=== PATIENT | female | born 1945 | race Hispanic/Latino ===

== ENCOUNTER 2020-06-29 16:17 | Observation (INO) | payer SELFPAY ==
[2020-06-29] MEDS ORDERED: SODIUM CHLORIDE 0.9% (FLUSH) 10 ML SYG IV PRN (16:32)
--- NOTE | 2020-06-29 16:56 | CT ---
EXAM DESCRIPTION: CT-Head CLINICAL HISTORY: weakness COMPARISON: None available TECHNIQUE: Multiple axial images of the head without contrast. Multiplanar reformatted images. This exam was performed according to our departmental dose-optimization program, which includes automated exposure control, adjustment of the mA and/or kV according to patient size and/or use of iterative reconstruction technique. FINDINGS: Moderately degraded image quality secondary to motion artifact. This limits evaluation. No definite CT evidence of hemorrhage, mass effect, or large territory infarction. Mild generalized volume loss. Mild patchy supratentorial white matter hypodensities. There are no abnormal extra-axial fluid collections. Calcific plaque in the visualized arteries. There is no acute calvarial defect. Heterogeneous opacification in the left maxillary sinus containing hyperdense debris. Moderate mucosal thickening throughout the ethmoid air cells and left sphenoid sinus. The mastoid air cells are clear. IMPRESSION: 1. Motion limited exam, but no definitive CT evidence of an acute intracranial abnormality. If there is concern for an acute or subacute infarct, consider follow-up MRI. 2. Senescent changes. 3. Likely acute on chronic inflammatory changes in the left maxillary sinus. Findings called to Dr. Tae Villegas on 06/29/2020 at 1651 hours. Electronically signed by: Rene Stephenson MD 06/29/2020 4:54 PM CDT
--- NOTE | 2020-06-29 17:07 | RAD ---
EXAM DESCRIPTION: Chest,1 View CLINICAL HISTORY: 74 years Female, right sided weakness x 24+ hours COMPARISON: None. TECHNIQUE: AP portable chest. FINDINGS: Fair expansion of the lungs is evident without consolidation, layering effusion, or large mass. Modest cardiomegaly with normal vascularity without overt failure or pleural effusions. No gross bony, hilar, or mediastinal abnormalities are noted. IMPRESSION: Cardiomegaly without congestive failure. Electronically signed by: Roly Hutchison MD 06/29/2020 5:06 PM CDT
--- NOTE | 2020-06-29 17:41 | ED.PDOC ---
History of Present Illness - General Chief Complaint: Neuro Symptoms/Deficits Stated Complaint: weakness, eye pain Time Seen by Provider: 06/29/20 16:32 Source: patient, RN notes reviewed, Vital Signs reviewed, EMS notes reviewed, family - son Exam Limitations: no limitations - History of Present Illness Initial Comments: . Patient is a 74-year-old female who presents with her son with complaints of generalized weakness as well as not feeling well with generalized malaise and fatigue. Additionally, she has had right-sided weakness and facial droop for the last 24+ hours. Patient recently just came back from [place]. Patient complains of some eye pain, right. Patient denies any visual field changes. She denies any numbness or tingling. Timing/Duration: 24 hours Severity: moderate Improving Factors: nothing Worsening Factors: nothing Associated Symptoms: weakness Allergies/Adverse Reactions: Allergies NO KNOWN ALLERGY Allergy (Verified 06/29/20 16:32) Review of Systems - Review of Systems Constitutional: States: see HPI, malaise, weakness. Denies: chills, fever EENTM: States: see HPI, eye pain. Denies: blurred vision, double vision Respiratory: States: no symptoms reported. Denies: cough, short of breath, wheezing Cardiology: States: no symptoms reported. Denies: chest pain, palpitations, syncope Gastrointestinal/Abdominal: States: no symptoms reported. Denies: abdominal pain, diarrhea, nausea, vomiting Genitourinary: States: no symptoms reported. Denies: dysuria Musculoskeletal: Denies: no symptoms reported, back pain, joint pain, neck pain Skin: States: no symptoms reported. Denies: change in color, rash Neurological: States: see HPI, weakness. Denies: headache, numbness Endocrine: States: no symptoms reported. Denies: increased hunger, increased thirst, increased urine Hematologic/Lymphatic: States: no symptoms reported All other Systems: No Change from Baseline Past Medical History (General) - Patient Medical History Hx Congestive Heart Failure: No Hx Hypertension: Yes Hx Diabetes: No Surgical History: no surgical history - Vaccination History Immunizations Up to Date: Yes - Activities of Daily Living Hospice Agency (if applicable):: None - Female History Patient is a Female of Child Bearing Age (10 -59 yrs old): No Family Medical History - Family History Mother Family History: Unknown Physical Exam - Physical Exam General Appearance: Alert, Anxious, Obese, Well Developed, Well Groomed, Well Hydrated, Well Nourished Eye Exam: bilateral normal Ears, Nose, Throat: hearing grossly normal, normal pharynx - except for mild tongue deviation to the right when pt sticks her tongue out. Neck: non-tender, full range of motion, supple Respiratory: chest non-tender, lungs clear, normal breath sounds, no respiratory distress Cardiovascular/Chest: normal peripheral pulses, regular rate, rhythm, no edema, no gallop, no JVD, no murmur Peripheral Pulses: radial,right: 2+, radial,left: 2+ Gastrointestinal/Abdominal: normal bowel sounds, non tender, soft, no organome olegario, no pulsatile mass Back Exam: normal inspection, no CVA tenderness, no vertebral tenderness Extremity: normal range of motion, non-tender, normal inspection, no pedal edema Neurologic: machine ii engraver II-XII nml as tested, no motor/sensory deficits, alert, normal mood/affect, oriented x 3, motor weakness - generalized weakness Skin Exam: normal color, warm/dry Lymphatic: no adenopathy Progress - Progress Progress: Differential diagnosis: CVA, TIA, hypoglycemia, electrolyte abnormality among others 06/29/20 18:[address] does not show any signs of stroke. EKG is normal but she does have a mildly elevated troponin that is flat. Plan on admission to the hospital for trending of troponins and to obtain an MRI and ultrasound for completion of her stroke work-up. I discussed this plan of care with the patient and her son and they voiced understanding and agreement with the plan of care. I discussed this patient with Marques Shafer, SHANNON, and he accepts the patient for admission. Tae Villegas M.D. #[id number] - Results/Orders Results/Orders: EXAM DESCRIPTION: Chest,1 View CLINICAL HISTORY: 74 years Female, right sided weakness x 24+ hours COMPARISON: None. TECHNIQUE: AP portable chest. FINDINGS: Fair expansion of the lungs is evident without consolidation, layering effusion, or large mass. Modest cardiomegaly with normal vascularity without overt failure or pleural effusions. No gross bony, hilar, or mediastinal abnormalities are noted. IMPRESSION: Cardiomegaly without congestive failure. Electronically signed by: Roly Hutchison MD 06/29/2020 5:06 PM EXAM DESCRIPTION: CT-Head CLINICAL HISTORY: weakness COMPARISON: None available TECHNIQUE: Multiple axial images of the head without contrast. Multiplanar reformatted images. This exam was performed according to our departmental dose-optimization program, which includes automated exposure control, adjustment of the mA and/or kV according to patient size and/or use of iterative reconstruction technique. FINDINGS: Moderately degraded image quality secondary to motion artifact. This limits evaluation. No definite CT evidence of hemorrhage, mass effect, or large territory infarction. Mild generalized volume loss. Mild patchy supratentorial white matter hypodensities. There are no abnormal extra-axial fluid collections. Calcific plaque in the visualized arteries. There is no acute calvarial defect. Heterogeneous opacification in the left maxillary sinus containing hyperdense debris. Moderate mucosal thickening throughout the ethmoid air cells and left sphenoid sinus. The mastoid air cells are clear. IMPRESSION: 1. Motion limited exam, but no definitive CT evidence of an acute intracranial abnormality. If there is concern for an acute or subacute infarct, consider follow-up MRI. 2. Senescent changes. 3. Likely acute on chronic inflammatory changes in the left maxillary sinus. Findings called to Dr. Tae Villegas on 06/29/2020 at 1651 hours. Electronically signed by: Rene Stephenson MD 06/29/2020 4:54 PM CDT EKG performed 29 June 2020 at 1626 hrs.: Normal sinus rhythm at 64 bpm, normal axis deviation, no ST or T wave changes, normal EKG no signs of acute ischemia. No old EKG for comparison. 06/29/20 16:32 Telemetry .ONCE Sodium Chloride 0.9% (Flush) [Saline Flush Syringe] 10 ml IV PRN PRN 06/29/20 16:45 EKG STAT Laboratory Results - last 24 hr 06/29/20 06/29/20 06/29/20 16:30 16:30 16:30 WBC 7.5 RBC 3.21 L Hgb 13.5 Hct 37.8 MCV 117.7 H MCH 41.9 H MCHC 35.6 RDW 13.5 Plt Count 143 MPV 9.7 Absolute Neuts (auto) 3.90 Absolute Lymphs (auto) 2.50 Absolute Monos (auto) 0.80 Absolute Eos (auto) 0.20 Absolute Basos (auto) 0.10 Total Counted Cancelled Neutrophils % 51.8 Neutrophils % (Manual) Cancelled Lymphocytes % 33.7 Lymphocytes % (Manual) Cancelled Monocytes % 10.9 H Monocytes % (Manual) Cancelled Eosinophils % 2.5 Basophils % 1.1 Band Neutrophils Cancelled Eosinophils Cancelled Basophils Cancelled Metamyelocytes Cancelled Myelocytes Cancelled Promyelocytes Cancelled Nucleated RBCs Cancelled Hypersegmented Polys Cancelled Blast Cells Cancelled Plasma Cells Cancelled Other Cell Type Cancelled Hypochromia Cancelled Toxic Granulation Cancelled Dohle Bodies Cancelled Julissa Rods Cancelled Platelet Estimate Cancelled Normal RBC Morphology Stain quality accept Polychromasia Cancelled Poikilocytosis Cancelled Basophilic Stippling Cancelled Anisocytosis Cancelled Microcytosis Cancelled Macrocytosis Cancelled Spherocytes Cancelled Sickle Cells Cancelled Target Cells Cancelled Ovalocytes Cancelled Stomatocytes Cancelled Helmet Cells Cancelled [place] Bodies Cancelled [place] Rings Cancelled Tessie Cells Cancelled Acanthocytes (Spur) Cancelled Rouleaux Cancelled Schistocytes Cancelled RBC Morph Comment Cancelled PUBS Tear Drop Cells Cancelled PT 13.3 H INR 1.34 H PTT (SP) 24.7 Sodium 142 Potassium 4.1 Chloride 110 Carbon Dioxide 24 Anion Gap 12.1 BUN 13 Creatinine 0.73 BUN/Creatinine Ratio 17.8 POC Glucose Random Glucose 113 H Serum Osmolality 284.0 Calcium 9.3 Total Bilirubin 1.9 H AST 65 H ALT 38 Alkaline Phosphatase 111 Creatine Kinase 73 CK-MB (CK-2) 1.8 CK-MB (CK-2) % Not Reportable Troponin I 0.06 H Serum Total Protein 7.8 Albumin 3.1 L Globulin 4.7 H Albumin/Globulin Ratio 0.7 L 06/29/20 06/29/20 16:30 18:13 WBC RBC Hgb Hct MCV MCH MCHC RDW Plt Count MPV Absolute Neuts (auto) Absolute Lymphs (auto) Absolute Monos (auto) Absolute Eos (auto) Absolute Basos (auto) Total Counted Neutrophils % Neutrophils % (Manual) Lymphocytes % Lymphocytes % (Manual) Monocytes % Monocytes % (Manual) Eosinophils % Basophils % Band Neutrophils Eosinophils Basophils Metamyelocytes Myelocytes Promyelocytes Nucleated RBCs Hypersegmented Polys Blast Cells Plasma Cells Other Cell Type Hypochromia Toxic Granulation Dohle Bodies Julissa Rods Platelet Estimate Normal RBC Morphology Polychromasia Poikilocytosis Basophilic Stippling Anisocytosis Microcytosis Macrocytosis Spherocytes Sickle Cells Target Cells Ovalocytes Stomatocytes Helmet Cells [place] Bodies [place] Rings Tessie Cells Acanthocytes (Spur) Rouleaux Schistocytes RBC Morph Comment PUBS Tear Drop Cells PT INR PTT (SP) Sodium Potassium Chloride Carbon Dioxide Anion Gap BUN Creatinine BUN/Creatinine Ratio POC Glucose 106 H Random Glucose Serum Osmolality Calcium Total Bilirubin AST ALT Alkaline Phosphatase Creatine Kinase CK-MB (CK-2) CK-MB (CK-2) % Troponin I 0.06 H Serum Total Protein Albumin Globulin Albumin/Globulin Ratio Vital Signs 06/29/20 06/29/20 06/29/20 16:20 16:33 17:17 Temperature 97.5 F L 97.5 F L Pulse Rate [ 72 72 60 brachial] Respiratory 16 16 16 Rate Blood Pressure 210/84 174/71 [Left Arm] O2 Sat by Pulse 99 99 Oximetry Departure - Departure Clinical Impression: TIA (transient ischemic attack), Elevated troponin I level Time of Disposition: 18:52 Disposition: Admit Patient Condition: Fair Departure Forms: ED Discharge - Pt. Copy, Patient Portal Self Enrollment Diet: resume usual diet Activity: increase activity as tolerated Referrals: GARLAND VILLASEÑOR IV, STICK INSERTER [Primary Care Provider] - 1-2 Weeks Decision To Admit - Decistion To Admit Decision to Admit Date: 06/29/20 Decision to Admit Time: 18:40
[2020-06-29] MEDS ORDERED: MECLIZINE HCL 12.5 MG TAB PO ONE (18:58)
[2020-06-29] MEDS ORDERED: hydrALAZINE HCl 20 MG/ML VIAL IV ONE (18:58)
--- NOTE | 2020-06-29 23:44 | CT ---
EXAM: CTA Chest HISTORY: elevated DDimer, SOB, COVID positive COMPARISON: 06/21/2020 TECHNIQUE: Contiguous axial CTA images of the chest were obtained from the thoracic inlet to the upper abdomen after administration of intravenous contrast followed by multiplanar reformats. 3-D postprocessing was performed. This exam was performed according to our departmental dose-optimization program, which includes automated exposure control, adjustment of the mA and/or kV according to patient size and/or use of iterative reconstruction technique. FINDINGS: There is adequate opacification of the pulmonary arterial vasculature. There is no evidence of pulmonary embolus. Cardiomegaly. No pericardial. No right heart strain. No mediastinal adenopathy. Central airways are patent. Great vessels are normal. Clear lungs, accounting for respiratory motion artifact at the bases. No pneumothorax or pleural effusion. Limited visualization of upper abdominal contents is unremarkable for an acute process. No destructive osseous lesion. IMPRESSION: 1. No evidence of pulmonary embolus. 2. No active cardiopulmonary process. Please note that the lungs may initially appear clear in the early course of COVID infection. Electronically signed by: Shad Zarate MD 06/29/2020 11:43 PM CDT
[2020-06-30] MEDS ORDERED: SODIUM CHLORIDE 0.9% (FLUSH) 10 ML SYG IV PRN (00:29)
[2020-06-30] MEDS ORDERED: IV SET AND CAP CHANGE INJ INJ SCH (00:30)
[2020-06-30] MEDS ORDERED: AZITHROMYCIN IV 500 MG in SODIUM CHLORIDE 0.9% 250ML 250 ML IVPB SCH (01:00)
[2020-06-30] MEDS ORDERED: AZITHROMYCIN IV 500 MG VIAL IVPB ONE (01:17)
[2020-06-30] MEDS ORDERED: SODIUM CHLORIDE 0.9% 250ML 250 ML ONE (01:18)
[2020-06-30] MEDS: DEXAMETHASONE INJ 10 MG/ML VIAL IV SCH ×2 (01:19→08:50)
[2020-06-30] MEDS ORDERED: LABETALOL INJ 5 MG/ML VIAL IV ONE (01:39)
[2020-06-30 06:07] VITALS: BP 130/62; TEMP 97.8
[2020-06-30 10:17] VITALS: O2SAT 100
[2020-06-30] MEDS ORDERED: ASPIRIN (CHEWABLE) 81 MG TAB PO SCH (11:30)
[2020-06-30] MEDS ORDERED: ASPIRIN (CHEWABLE) 81 MG TAB ONE (11:59)
[2020-06-30] MEDS ORDERED: LOSARTAN POTASSIUM 25 MG TAB PO SCH (21:00)
--- NOTE | 2020-07-01 09:11 | SSS ---
SUPERVISING PHYSICIAN: Apurva Bruner MD DATE OF ADMISSION: 06/29/20 DATE OF DISCHARGE: 06/30/20 CHIEF COMPLAINT: Generalized weakness. HISTORY OF PRESENT ILLNESS: Ms. Child is a 74-year-old female that was seen in the clinic on Monday, by Daniel Chávez for generalized weakness. She has a past medical history of hypertension. Of note also, she just got back from [place]. She was found to be a little hypertensive in the clinic with generalized weakness and some reported right sided weakness with questionable facial droop for the last 24 hours. She was sent to the Emergency Room for evaluation. In the ER, it was discovered her symptoms had been going on for quite a while with regards to weakness. It is unclear if the generalized weakness was more prominent on the right. No neurologic deficits were noted on exam other than it was felt she may have slight deviation of tongue on exam. The patient was tested for COVID and found to be positive, but was not showing any respiratory signs. Workup in the ER initially showed her vital signs on presentation showed she was hypertensive 210/84, but was showing heart rate 72, saturation 99% on room air. She had no other complaints. She actually was given hydralazine to bring her blood pressure down. Further workup in the ER with laboratory studies showed she had a white count 7,500, hemoglobin 13.5, hematocrit 37.8. She did have macrocytosis on RBC indices. Platelet count normal at 143. Differential was without a left shift. Coagulation studies did reveal a slightly elevated PT of 13.3 with INR 1.34, PTT 24.7. D-dimer was elevated at 618. Chemistry showed normal electrolytes with creatinine 0.73, blood sugar 113, calcium 9.3, magnesium 1.9. Ferritin was elevated at 564. Bilirubin 1.9, AST 65. Initial troponin 0.06. Repeat in 2 hours was unchanged at 0.06, which is just above normal of 0.05. The patient had no EKG changes and was not complaining of any chest pains. Given her generalized weakness, Dr. Villegas requested the patient be placed in observation overnight for the neurologic assessment and further workup for possible transient ischemic attack. Given her travel status just recently returning from [place], requested a COVID test and that was found to be positive, as noted above, although she was not showing any respiratory symptoms. She was admitted to the COVID floor on Med/Surg for further evaluation and treatment. She was placed in observation. At the time of observation, she was stable with no neurologic signs. PAST MEDICAL HISTORY: 1. Hypertension. PAST SURGICAL HISTORY: No listed surgeries. HOME MEDICATIONS: 1. Losartan 50 mg b.i.d. ALLERGIES: NO KNOWN DRUG ALLERGIES. FAMILY HISTORY: Noncontributory. SOCIAL HISTORY: The patient lives with her son in [place]. She denies any alcohol, illicit drug use or tobacco use. REVIEW OF SYSTEMS: CONSTITUTIONAL: Negative for any fevers, chills or unintentional weight loss. Positive for general malaise. HEENT: Negative for headaches, sore throats, earaches, nasal congestion, vision changes. RESPIRATORY: Negative for coughing, wheezing or shortness of breath. CARDIOVASCULAR: Negative for chest pain, palpitations or syncopal episodes. GASTROINTESTINAL: Negative for nausea, vomiting, diarrhea, constipation or abdominal pain. GENITOURINARY: Negative for dysuria, hematuria, polyuria. MUSCULOSKELETAL: Negative for arthralgias, joint swelling. SKIN: Negative for lesions, rashes, moles or unexplained changes. NEUROLOGIC: Negative for ataxia, seizures, headaches, vision changes, migraines, syncopal episodes. Positive for paresthesias on the right. HEMATOLOGIC: Negative for easy bruising, unexplained bleeding or transfusion reactions. PHYSICAL EXAMINATION: VITAL SIGNS: Initially on admission to the Emergency Room, she was showing blood pressure 210/84, temperature 97.5, pulse 99. After admission to the Floor, temperature was 96.7, blood pressure 162/79, respirations 16, saturation 99% on room air. GENERAL: The patient was resting comfortably, does not appear to be in any acute distress. She is well-hydrated, well-nourished. She is alert. HEENT: Tympanic membranes clear bilaterally. Oropharynx is pink, moist without any lesions. NECK: Supple, nontender with full range of motion. No jugular venous distention noted. RESPIRATORY: Lung sounds are clear to auscultation bilaterally without any rhonchi, wheezes or rales. CARDIOVASCULAR: Regular rate and rhythm without any appreciable murmurs, gallops, or rubs. ABDOMEN: Soft, nontender. Positive bowel sounds. EXTREMITIES: There is no cyanosis, clubbing or edema. NEUROLOGIC: Cranial nerves II-XII are grossly intact. There was no pronator drift. [id number] was normal. Facial features appeared to be symmetrical. There is no nystagmus noted. The patient is alert and oriented times three. SKIN: Warm, pink and dry. LABORATORY: CBC showed white count 7,500, hemoglobin 13.5, hematocrit 37.8, platelet count 143,000. Differential was without a left shift. RBC indices indicated a macrocytosis. Coagulation studies showed slightly elevated PT 13.3, INR 1.3, normal PTT 24.7. Fibrinogen normal at 197. D-dimer slightly elevated at 618. Chemistry showed normal electrolytes. Blood sugar 113, calcium 9.3, bilirubin 1.9, AST 65, LDH 202, ferritin 547. Troponin 0.06 and stable. C- reactive protein less than 0.5. BNP normal at 32. Urinalysis was pending, never collected. RADIOLOGY: CT of the head per radiologic interpretation showed motion limited exam, but no definitive CT acute intracranial abnormalities. Senescent changes noted. Likely acute on chronic inflammatory changes in the left maxillary sinus. Chest x-ray per radiologic interpretation showed cardiomegaly without congestion failure. Chest/thoracic CTA to evaluate for pulmonary embolism showed no evidence of pulmonary embolus. No active cardiopulmonary process. Please see those reports for details. MRI and carotid were requested, but unable to obtain due to the patient having COVID and not in acute state, can be worked up as an outpatient. Echocardiogram was unavailable at time of admission due to lack of tech to perform echocardiogram. This can be followed as an outpatient. EKG: Normal sinus rhythm without ST or T-wave changes. No comparison available at time of admission. EKG telemetry showed no acute changes, no ectopy, she remained in sinus rhythm. HOSPITAL COURSE: Ms. Child was admitted overnight for close neurologic monitoring. She had no concerning changes. She had no shortness of breath. She was showing room air saturations in the high 90s. She has had no respiratory symptoms. Clinically, she was stable. She had no recurrence of symptoms. I did discuss the case with Daniel Chávez, her primary care provider. She had a little hypertension that was treated with labetalol initially and had no recurrence. She was continued on her home medications in the hospital. She will need further workup as an outpatient, but again, she was clinically stable with no acute signs of chest pains or any neurologic findings. With regards to her COVID testing, it was positive, but she was not showing any respiratory symptoms although I did start her on Decadron and azithromycin as well as breathing treatments. ADMISSION DIAGNOSIS: 1. Generalized weakness, etiology uncertain, possibly related to hypertension, needing further followup in the outpatient setting to further rule out any cerebrovascular accident with MRI, carotid studies and echocardiogram. 2. Poorly controlled hypertension. 3. Elevated transaminase in the form of AST, etiology uncertain, needing followup as an outpatient. 4. COVID-19 infection without any signs of acute pneumonitis or other complicating factors, needing followup as an outpatient. DISCHARGE DIAGNOSIS: 1. Generalized weakness, etiology uncertain, possibly related to hypertension, needing further followup in the outpatient setting to further rule out any cerebrovascular accident with MRI, carotid studies and echocardiogram. 2. Poorly controlled hypertension. 3. Elevated transaminase in the form of AST, etiology uncertain, needing followup as an outpatient. 4. COVID-19 infection without any signs of acute pneumonitis or other complicating factors, needing followup as an outpatient. PLAN: Ms. Child was discharged to followup with Daniel Chávez for further testing including MRI, carotid and echocardiogram. I did not start her on aspirin as there was no acute evidence of a TIA or CVA. She was continued on her blood pressure medicine with losartan and encouraged to followup with Daniel Chávez and keep a log of blood pressures. I did continue her on further treatment for COVID infection with azithromycin for 4 days, Decadron 6 mg for 10 days, and albuterol inhalers as needed for shortness of breath. She was given instructions and warnings to return to the ER if she had any worsening symptoms or shortness of breath or other concerns. PRESCRIPTIONS AT DISCHARGE: 1. Albuterol inhaler 1 puff q4h as needed. 2. Azithromycin 250 mg daily, #4, no refills. 3. Decadron 6 mg daily, #9, no refills. CONDITION ON DISCHARGE: Stable and improved. DISPOSITION: The patient was discharged home. #[id number] [facility]
== END 2020-06-30 12:35 | disposition home or self-care (01) ==
LOC: ER 16:17 → MS 23:55
PROVIDERS: ADMIT Nurse Practitioner Family; ATTEND Nurse Practitioner Family
DX: M62.81 Muscle weakness (generalized) (principal); I11.9 Hypertensive heart disease without heart failure; R74.0 Nonspecific elevation of levels of transaminase and lactic acid dehydrogenase [LDH]; U07.1 COVID-19; R53.83 Other fatigue; R53.81 Other malaise; H57.11 Ocular pain, right eye; Z79.899 Other long term (current) drug therapy
CPT/HCPCS: 96374; 96375; 96376; J0360; J7050; J1100 ×2; J0456; A4216; 85379; 82553; 80053; 82948; 36415 ×3; 85384; 86140; 85025; 82550; 82728; 83615; 83735; 85730; 85610; 84484 ×2; 83880; 36416; 71045; 70450; 71275; 94760; 99285; 93005; G0378; 87635